=== PATIENT | female | born 1980 | race Caucasian/White ===

== ENCOUNTER 2018-05-01 12:59 | Emergency (ER) | payer OTHER ==
[~2018-05-01] VITALS: Ht 152.4 cm; Wt 92.1 kg
[2018-05-01 13:02] VITALS: Ht 152.4 cm; Wt 92.1 kg
[2018-05-01 14:17] LABS: BASOPHIL % 0.7 % (0-2); PLATELET COUNT 331 x10^3mcL (130-400)
[2018-05-01 14:18] LABS: CALCIUM 8.4 mg/dL (8.5-10.1); CHLORIDE SERUM 103 mmol/L (98-107); CREATININE SERUM 0.7 mg/dL (0.6-1.0); GFR1 > 60 mL/min; GLUCOSE SERUM 98 mg/dL (74-106); POTASSIUM SERUM 3.6 mmol/L (3.5-5.1); SODIUM SERUM 136 mmol/L (136-145)
[2018-05-01 14:23] LABS: ALKALINE PHOSPHATASE 88 U/L (46-116); ALT/SGPT 24 U/L (14-59); AST/SGOT 16 U/L (15-37); BILIRUBIN TOTAL 0.17 mg/dL (0.20-1.00); RED CELL DISTRIBUTION WIDTH 17.7 % (11.5-14.5); TOTAL PROTEIN, SERUM 7.4 g/dL (6.4-8.2)
[2018-05-01 14:27] LABS: ALBUMIN 3.2 g/dL (3.4-5.0)
[2018-05-01 14:49] VITALS: BP 126/68
== END 2018-05-01 14:50 | disposition home or self-care (01) ==
LOC: ED 12:59
PROVIDERS: Specialist
DX: R00.2 Palpitations (principal); I10 Essential (primary) hypertension; J45.909 Unspecified asthma, uncomplicated; E78.5 Hyperlipidemia, unspecified; Z88.0 Allergy status to penicillin
CPT/HCPCS: 36415; 83880; Q0092

== ENCOUNTER 2019-04-25 18:20 | Emergency (ER) | payer OTHER ==
[~2019-04-25] VITALS: Ht 152.4 cm; Wt 95.3 kg
[2019-04-25 18:31] VITALS: Ht 152.4 cm; Wt 95.3 kg
[2019-04-25 19:04] LABS: BASOPHIL % 0.4 % (0-2); PLATELET COUNT 359 x10^3mcL (130-400)
[2019-04-25 19:07] LABS: RED CELL DISTRIBUTION WIDTH 15.4 % (11.5-14.5)
[2019-04-25 21:07] VITALS: BP 139/98
== END 2019-04-25 21:07 | disposition home or self-care (01) ==
LOC: ED 18:20
PROVIDERS: Emergency Medicine
DX: N93.8 Other specified abnormal uterine and vaginal bleeding (principal); J45.909 Unspecified asthma, uncomplicated; E78.5 Hyperlipidemia, unspecified; Z88.0 Allergy status to penicillin
CPT/HCPCS: 36415

== ENCOUNTER 2019-06-17 06:16 | Day surgery (SDC) | payer OTHER, MEDICAID ==
[2019-06-15 12:39] LABS: BASOPHIL % 0.5 % (0-2)
[2019-06-15 12:41] LABS: RED CELL DISTRIBUTION WIDTH 18.8 % (11.5-14.5)
[2019-06-15 12:42] LABS: ALBUMIN 3.6 g/dL (3.4-5.0); ALKALINE PHOSPHATASE 60 U/L (46-116); ALT/SGPT 37 U/L (14-59); AST/SGOT 18 U/L (15-37); BILIRUBIN TOTAL 0.23 mg/dL (0.20-1.00); CALCIUM 8.8 mg/dL (8.5-10.1); CARBON DIOXIDE 26.3 mmol/L (21-32); CHLORIDE SERUM 105 mmol/L (98-107); CREATININE SERUM 0.8 mg/dL (0.6-1.0); GFR1 > 60 mL/min; GLUCOSE SERUM 88 mg/dL (74-106); POTASSIUM SERUM 3.7 mmol/L (3.5-5.1); SODIUM SERUM 140 mmol/L (136-145); TOTAL PROTEIN, SERUM 8.2 g/dL (6.4-8.2)
[2019-06-15 12:45] LABS: PLATELET COUNT 514 x10^3mcL (130-400)
[~2019-06-17] VITALS: Ht 152.4 cm; Wt 88.9 kg
[2019-06-17 06:23] VITALS: BP 156/97
[2019-06-17 14:28] VITALS: BP 127/90
== END 2019-06-17 14:20 | disposition home or self-care (01) ==
LOC: DS 06:16 → OR 08:30 → DS 14:20
PROVIDERS: Obstetrics & Gynecology
DX: N83.292 Other ovarian cyst, left side (principal); N80.0 Endometriosis of uterus; G89.18 Other acute postprocedural pain; N73.6 Female pelvic peritoneal adhesions (postinfective); D64.9 Anemia, unspecified; J45.909 Unspecified asthma, uncomplicated; E66.9 Obesity, unspecified; Z88.0 Allergy status to penicillin; Z79.899 Other long term (current) drug therapy; Z68.41 Body mass index [BMI] 40.0-44.9, adult
CPT/HCPCS: C1758; J0330; J2175; J2250; J2405; J2704; J2710; J3010; J3490

== ENCOUNTER 2020-06-08 16:28 | Emergency (ER) | payer OTHER ==
[~2020-06-08] VITALS: Ht 152.4 cm; Wt 88.5 kg
[2020-06-08 16:39] VITALS: Ht 152.4 cm; Wt 88.5 kg
[2020-06-08 17:39] LABS: CALCIUM 8.4 mg/dL (8.5-10.1); CARBON DIOXIDE 28.2 mmol/L (21-32); CHLORIDE SERUM 101 mmol/L (98-107); CREATININE SERUM 0.9 mg/dL (0.6-1.0); GFR1 > 60 mL/min; GLUCOSE SERUM 111 mg/dL (74-106); POTASSIUM SERUM 3.6 mmol/L (3.5-5.1); SODIUM SERUM 136 mmol/L (136-145)
[2020-06-08 17:41] LABS: BASOPHIL % 0.3 % (0-2); PLATELET COUNT 354 x10^3mcL (130-400)
[2020-06-08 17:44] LABS: ALBUMIN 3.2 g/dL (3.4-5.0); ALKALINE PHOSPHATASE 86 U/L (46-116); ALT/SGPT 22 U/L (14-59); AMYLASE 37 U/L (25-115); AST/SGOT 12 U/L (15-37); BILIRUBIN TOTAL 0.51 mg/dL (0.20-1.00); LIPASE 105 IU/L (73-393); RED CELL DISTRIBUTION WIDTH 21.7 % (11.5-14.5); TOTAL PROTEIN, SERUM 7.5 g/dL (6.4-8.2)
[2020-06-08 18:01] LABS: rbc morphology (normal/abnorm) ABNORMAL (NORMAL)
[2020-06-08 19:17] VITALS: BP 138/85
== END 2020-06-08 19:17 | disposition home or self-care (01) ==
LOC: ED 16:28
PROVIDERS: Emergency Medicine
DX: N39.0 Urinary tract infection, site not specified (principal); J45.909 Unspecified asthma, uncomplicated; E78.5 Hyperlipidemia, unspecified; Z88.0 Allergy status to penicillin
CPT/HCPCS: J0696; J1885; J2405; J7030; Q0092